=== PATIENT | male | born 1990 | race Two or more races ===

== ENCOUNTER 2019-04-20 14:13 | Emergency (ER) | payer MEDICAID, OTHER ==
[~2019-04-20] VITALS: Ht 170.2 cm; Wt 70.3 kg
[2019-04-20 14:19] VITALS: BP 126/93
== END 2019-04-20 18:43 | disposition left against medical advice (07) ==
LOC: EDBD 14:13 → ER 14:13
DX: T17.1XXA Foreign body in nostril, initial encounter (principal); Z53.21 Procedure and treatment not carried out due to patient leaving prior to being seen by health care provider; X58.XXXA Exposure to other specified factors, initial encounter; Y93.89 Activity, other specified; Y92.89 Other specified places as the place of occurrence of the external cause; Y99.8 Other external cause status